=== PATIENT | male | born 2000 | race African-American/Black ===

== ENCOUNTER 2025-06-27 16:34 | Emergency (ER) | payer MEDICAID, OTHER ==
[~2025-06-27] VITALS: Ht 175.3 cm; Wt 127.0 kg
[2025-06-27 16:36] VITALS: O2SAT 99
[2025-06-27] MEDS: LORAZEPAM 1MG TABLET PO ONE (17:24)
[2025-06-27] MEDS: SODIUM CHLORIDE 0.9% 1,000 ML IV ONE ×2 (17:26)
[2025-06-27 17:34] LABS: HEMATOCRIT. 49.4 % (42.0-52.0); HEMOGLOBIN. 15.4 g/dL (14.0-18.0); MEAN PLATELET VOLUME 9.7 fl (7.4-10.4); PLATELET 269 x1000/uL (130-400); RED BLOOD CELL COUNT 5.24 mill/uL (4.7-6.1); RED CELL DISTRIBUTION WIDTH 13.8 % (11.6-14.6)
[2025-06-27 17:48] LABS: CREATININE 2.3 mg/dL (0.6-1.3); UREA NITROGEN BLOOD 11 mg/dL (9-23)
[2025-06-27 17:50] LABS: ASPARTATE AMINOTRANSFERASE 45 IU/L (<34); BILIRUBIN DIRECT 0.1 mg/dL (<=3.0)
[2025-06-27 17:51] LABS: BILIRUBIN TOTAL 0.4 mg/dL (0.1-1.0); PROTEIN TOTAL 8.1 g/dL (6.0-8.3)
[2025-06-27 17:52] LABS: EOSINOPHILS % MANUAL 2.0 % (0.0-5.0); LYMPHOCYTES % MANUAL 46.0 % (20.0-50.0); MONOCYTES % MANUAL 3.0 % (2.0-8.0); NEUTROPHILS % MANUAL 49.0 % (45.0-75.0); PLATELET ESTIMATE NORMAL
[2025-06-27 18:00] LABS: TROPONIN I HIGH SENSITIVITY 183 ng/L (3.0-53)
[2025-06-27 18:26] VITALS: TEMP 36.6
[2025-06-27 18:54] VITALS: TEMP 97.8
[2025-06-27 19:12] LABS: BG BASE EXCESS -7.6 mmol/L (-2.0-3.0); BG CARBOXYHEMOGLOBIN 1.6 % (0.5-1.5); BG DEOXYHEMOGLOBIN 4.6 % (0.0-5.0); BG FLOW(L/min) 6.00 L/min; BG FRACTION INSPIRED OXYGEN 44; BG HCO3 ACT 18.0 mmol/L (21.0-28.0); BG METHEMOGLOBIN 0.3 % (0.5-1.5); BG OXYGEN SATURATION 95.3 % (94.0-98.0); BG OXYHEMOGLOBIN 93.5 % (94.0-98.0); BG PCO2 37.1 mmHg (35.0-48.0); BG PH 7.303 (7.350-7.450); BG PO2 87.2 mmHg (83.0-108.0); BG SAMPLE SITE RIGHT RADIAL; BG TOTAL HEMOGLOBIN 15.9 g/dL (13.5-17.5); BG VENT MODE NASAL CANNULA
[2025-06-27 19:47] LABS: *AMPHETAMINES SCREEN URINE NEGATIVE (NEGATIVE); *BARBITURATES SCREEN URINE NEGATIVE (NEGATIVE); *BENZODIAZEPINES SCREEN URINE NEGATIVE (NEGATIVE); *COCAINE SCREEN URINE NEGATIVE (NEGATIVE); METHADONE URINE SCREEN NEGATIVE (NEGATIVE); OPIATES URINE SCREEN NEGATIVE (NEGATIVE)
[2025-06-27 19:48] LABS: CANNABINOID URINE SCREEN PRESUMPTIVE POSITIVE (NEGATIVE); ECSTASY MDMA SCREEN URINE NEGATIVE (NEGATIVE); PHENCYCLIDINE URINE SCREEN NEGATIVE (NEGATIVE)
[2025-06-27 20:10] VITALS: BP 152/86; PULSE 115; RESP 22; O2SAT 100
== END 2025-06-27 20:34 | disposition left against medical advice (07) ==
LOC: ER 16:34 → CMPBEDREQ 06-28 07:42
DX: I21.4 Non-ST elevation (NSTEMI) myocardial infarction (principal); R00.2 Palpitations; Z79.899 Other long term (current) drug therapy
CPT/HCPCS: 80076; 80305; 80048; 80320; 82550; 85025; 84484; 36415; 71045; 82805; 82375; 93005; 96360; 99285; 36600; J7030; Z7610; G0480